=== PATIENT | male | born 1975 | race American Indian/Alaskan Native ===

== ENCOUNTER 2017-10-10 06:16 | Emergency (ER) | payer BC ==
[2017-10-10] MEDS ORDERED: LIDOCAINE VISCOUS 2% PO ONE (06:33)
[2017-10-10] MEDS ORDERED: ALUM-MAG HYDROX-SIMETH 200-200-20MG/5ML PO ONE (06:33)
[2017-10-10 09:45] LABS: Basophils % (Auto) 0.2 % (0.0-1.8); Eosinophils % (Auto) 0.3 % (0.0-4.3); Hematocrit 51.6 % (35.5-45.6); Hemoglobin 17.6 gm/dl (11.8-15.2); Lymphocytes # (Auto) 0.5 K/mm3 (1.2-5.4); Lymphocytes % (Auto) 4.9 % (13.4-35.0); Mean Corpuscular HGB Conc 34 % (32-34); Mean Corpuscular Hemoglobin 34 pg (28-32); Mean Corpuscular Volume 100 fl (84-94); Monocytes # (Auto) 0.5 K/mm3 (0.0-0.8); Monocytes % (Auto) 5.3 % (0.0-7.3); Platelet Count 269 K/mm3 (140-440); Red Blood Count 5.17 M/mm3 (3.65-5.03); Red Cell Distribution Width 12.9 % (13.2-15.2)
[2017-10-10 10:00] LABS: Alanine Aminotransferase 37 units/L (7-56); Albumin 4.3 g/dL (3.9-5); BUN/Creatinine Ratio 10; Blood Urea Nitrogen 13 mg/dL (9-20); Calcium 9.1 mg/dL (8.4-10.2); Hemolysis Index 38
--- NOTE | 2017-10-10 10:09 | Emergency Department Report ---
HPI - General Chief Complaint: Abdominal Pain Time Seen by Provider: 10/10/17 09:09 - HPI HPI: 41-year-old male presents to the emergency department with complaint of some abdominal discomfort that felt like gas pains that radiated up into the chest. This all started first on Sunday with a sore throat. He took some ibuprofen and thinks that that may have started his abdominal discomfort. The sore throat is improved but he is still concerned that he could have some type of strep throat or infectious etiology. He denies any fever, nausea, vomiting, dysuria or any problems with bowel or bladder. No recent travel or sick contacts at home. He has not taken anything for symptoms prior to Presentation. He is a tobacco smoker. ED Past Medical Hx - Past Medical History Previous Medical History?: No - Surgical History Past Surgical History?: No - Social History Smoking Status: Current Every Day Smoker Substance Use Type: None ED Review of Systems ROS: Stated complaint: ABD PAIN Other details as noted in HPI Comment: All other systems reviewed and negative Constitutional: denies: chills, fever Eyes: denies: eye pain, eye discharge, vision change ENT: throat pain. denies: ear pain Respiratory: denies: cough, shortness of breath, wheezing Cardiovascular: chest pain. denies: palpitations Gastrointestinal: abdominal pain. denies: nausea, vomiting Genitourinary: denies: urgency, dysuria Musculoskeletal: denies: back pain, joint swelling, arthralgia Skin: denies: rash, lesions Neurological: denies: headache, weakness, paresthesias Physical Exam - Physical Exam Vital Signs: Vital Signs 10/10/17 10/10/17 06:24 10:05 Temperature 97.4 F L 98.2 F Pulse Rate 57 L 62 Respiratory 22 16 Rate Blood Pressure 131/79 Blood Pressure 132/83 [Left] O2 Sat by Pulse 96 96 Oximetry Physical Exam: GENERAL: The patient is well-developed well-nourished. HENT: Normocephalic. Atraumatic. Patient has moist mucous membranes. EYES: Extraocular motions are intact. Pupils equal reactive to light bilaterally. NECK: Supple. Trachea is midline. CHEST/LUNGS: Clear to auscultation. There is no respiratory distress noted. HEART/CARDIOVASCULAR: Regular. There is no tachycardia. There is no murmur. ABDOMEN: Abdomen is soft. Mild generalized tenderness to palpation. No guarding. Patient has normal bowel sounds. There is no abdominal distention. SKIN: There is no rash. There is no edema. There is no diaphoresis. NEURO: The patient is awake, alert, and oriented. The patient is cooperative. The patient has no focal neurologic deficits. The patient has normal speech. MUSCULOSKELETAL: There is no tenderness or deformity. There is no limitation range of motion. There is no evidence of acute injury. ED Course Vital Signs 10/10/17 10/10/17 06:24 10:05 Temperature 97.4 F L 98.2 F Pulse Rate 57 L 62 Respiratory 22 16 Rate Blood Pressure 131/79 Blood Pressure 132/83 [Left] O2 Sat by Pulse 96 96 Oximetry ED Medical Decision Making - Lab Data Result diagrams: 10/10/17 09:23 10/10/17 09:23 - EKG Data -: EKG Interpreted by Me EKG shows normal: sinus rhythm, axis, intervals, QRS complexes, ST-T waves Rate: bradycardia - EKG Data When compared to previous EKG there are: previous EKG unavailable Interpretation: other (sinus with mild bradycardia. No ST elevation VT) - Radiology Data Radiology results: image reviewed interpreted by me: Chest x-ray does not show any acute process. There are no pleural effusions, obvious pneumonia and there is no pneumothorax. X-ray of the abdomen shows nonspecific nonobstructive bowel gas. - Medical Decision Making Patient came in with the complaint of some abdominal pain that made it hard for him to breathe secondary to the feeling of some gas pain that is made its way up into his chest. X-ray was done that does not show any fractures, pneumothorax, pneumonia or any abnormalities in the chest or abdomen. The labs were mostly unremarkable except for an elevated CK level of 2400. He was given 2 L of IV fluid resuscitation and the CK level was rechecked and is now down at 1800. There is no renal insufficiency. Patient was reevaluated multiple times for multiple hours and is feeling improved. Regarding the elevated CK level, patient was instructed to stay away from any heavy lifting or exertional exercise and work for a few days and to increase his oral rehydration. Vital signs stable throughout his course including being afebrile. Patient says he is feeling better and he appears safe for discharge home at this time. He will return to the ER if any worsening of symptoms or any acute distress. - Differential Diagnosis gastritis, bloating, colitis, bowel obstruction Critical Care Time: No Critical care attestation.: If time is entered above; I have spent that time in minutes in the direct care of this critically ill patient, excluding procedure time. ED Disposition Clinical Impression: Gas pain, Elevated CK Abdominal pain Qualifiers: Abdominal location: unspecified location Qualified Code(s): R10.9 - Unspecified abdominal pain Pharyngitis Qualifiers: Pharyngitis/tonsillitis etiology: unspecified etiology Qualified Code(s): J02.9 - Acute pharyngitis, unspecified Disposition: TO HOME OR SELFCARE Is pt being admited?: No Condition: Stable Instructions: Pharyngitis (ED), Rhabdomyolysis (ED), Gas and Bloating (ED), Abdominal Pain (ED) Additional Instructions: Please follow up with a primary care physician in the next few days if possible. Return to the emergency Department with any worsening of your symptoms or any acute distress. Increase your oral rehydration. Referrals: PRIMARY CARE [Primary Care Provider] - 3-5 Days Time of Disposition: 16:02
[2017-10-10 10:11] LABS: Bilirubin,Direct < 0.2 mg/dL (0-0.2)
--- NOTE | 2017-10-10 10:19 | XRay Report ---
ABDOMINAL SERIES: History: Abdominal pain, chest pain. Erect chest film shows no acute or significant changes involving the heart or lung gao. There is no evidence of free air beneath the diaphragms. The gas pattern within the abdomen is unremarkable. There is no evidence of bowel dilatation, significant air-fluid levels, or masses. Organ shadows are unremarkable. IMPRESSION: Abdominal series within normal limits.
[2017-10-10] MEDS ORDERED: NACL 0.9% 1000 ML 1,000 ML ONE (11:25)
[2017-10-10] MEDS ORDERED: NACL 0.9% 1000 ML 1,000 ML IV ONE ×2 (11:29)
[2017-10-10 11:44] LABS: Bilirubin,Urine NEG (Negative); Blood,Urine NEG (Negative); Color,Urine Yellow (Yellow); Mucus,Urine FEW /HPF; Protein,Urine <15 mg/dL mg/dL (Negative); Urobilinogen,Urine < 2.0 mg/dL (<2.0)
[2017-10-10 11:51] LABS: WBC,Urine < 1.0 /HPF (0.0-6.0)
[2017-10-10] MEDS ORDERED: ZOFRAN ODT ONE (16:05)
[2017-10-10] MEDS ORDERED: ZOFRAN ODT PO ONE (16:09)
[2017-10-10 16:12] VITALS: BP 144/86
== END 2017-10-10 16:11 | disposition home or self-care (01) ==
LOC: ED 06:16
DX: R14.1 Gas pain (principal); J02.9 Acute pharyngitis, unspecified; R11.2 Nausea with vomiting, unspecified; F17.200 Nicotine dependence, unspecified, uncomplicated; R10.84 Generalized abdominal pain
CPT/HCPCS: 36415; 74022; 80048; 80074; 81001; 82550; 84484; 85025; 87116; 87430; 93005; 93010; 96360; 96361; 99284; J7030; Q0162